=== PATIENT | female | born 1990 | race Caucasian/White ===

== ENCOUNTER 2018-05-25 05:41 | Day surgery (SDC) | payer OTHER ==
[~2018-05-25 05:41] MED LIST: CEFAZOLIN 2 GM/D5W RTU 2 GM/50 ML RTUPB IV ONE; CEFAZOLIN 2 GM/D5W RTU 2 GM/50 ML RTUPB IV PRN
[2018-05-25] MEDS ORDERED: BUPIVACAINE HCL 0.5 % INJ/PF 30 ML SDV ONE (06:55)
[2018-05-25] MEDS ORDERED: LIDOCAINE 1% INJ-PF (10 MG/ML) 30 ML SDV ONE (06:55)
[2018-05-25] MEDS ORDERED: MIDAZOLAM 2 MG/2 ML INJ ONE (07:09)
[2018-05-25] MEDS ORDERED: FENTANYL CITRATE INJ/PF 100 MCG/2 ML AMPUL ONE (07:09)
[2018-05-25] MEDS ORDERED: ONDANSETRON HCL INJ/PF 4 MG/2 ML SDV ONE (07:09)
[2018-05-25] MEDS ORDERED: PROPOFOL INJ 200 MG/20 ML VIAL IV ONE (07:09)
[2018-05-25] MEDS ORDERED: FAMOTIDINE INJ/PF 20 MG/2 ML SDV IV ONE (07:11)
[2018-05-25] MEDS ORDERED: SCOPOLAMINE HYDROBROMIDE 1.5 MG PATCH.TD72 ONE (07:11)
[2018-05-25] MEDS ORDERED: PROMETHAZINE HCL INJ 25 MG/1 ML VIAL IV PRN ×2 (07:58)
[2018-05-25] MEDS ORDERED: OXYCODONE-ACETAMINOPHEN 5-325 MG TABLET PO PRN ×4 (07:58→09:01)
[2018-05-25] MEDS ORDERED: MORPHINE SULFATE 10 MG/ML INJ IV PRN (07:58)
[2018-05-25] MEDS ORDERED: MEPERIDINE HCL/PF INJ 25 MG/1 ML DISP.SYRIN IV PRN (07:58)
[2018-05-25] MEDS ORDERED: FENTANYL CITRATE INJ/PF 100 MCG/2 ML AMPUL IV PRN ×3 (07:58)
[2018-05-25] MEDS ORDERED: DIPHENHYDRAMINE HCL 50 MG/ML VIAL IV PRN (07:58)
[2018-05-25] MEDS ORDERED: ONDANSETRON HCL INJ/PF 4 MG/2 ML SDV IV PRN (08:46)
[2018-05-25] MEDS ORDERED: ONDANSETRON HCL INJ/PF 4 MG/2 ML SDV IV ONE (09:15)
[2018-05-25 10:01] VITALS: BP 112/76
--- NOTE | 2018-05-25 14:39 | OPERATIVE REPORT E ---
Operative Report NAME: RASHMI ALEJANDRA : 1990 AGE: 27Y DATE OF SURGERY: 05/25/2018 ROOM: PREOPERATIVE DIAGNOSIS: Right small finger soft tissue mass. POSTOPERATIVE DIAGNOSIS: Right small finger soft tissue mass. PROCEDURE: Right small finger soft tissue mass. SURGEON: SATISH EUGENE M.D. ANESTHESIA: MAC with local sedation. BLOOD LOSS: Minimal. COMPLICATIONS: None. INDICATIONS: The patient is a pleasant 27-year-old woman with a large soft tissue mass on the ulnar aspect of proximal phalanx right small finger. 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 DESCRIPTION OF PROCEDURE: Following induction of MAC anesthesia, surgeon injected a digital block with a mixture of 0.25% Marcaine and 1% lidocaine after sterile preparation of the extremities. Right upper extremity was prepped with Chloraprep and draped in continuous fashion. The arm was exsanguinated and tourniquet inflated to 100 mm of systolic pressure. A midlateral incision was made on the ulnar aspect of the proximal phalanx of the digit. Sharp and blunt dissection was performed through the subcutaneous tissue. Care was taken to identify and protect the digital artery and the nerve. The mass was dissected down with a combination of a 15 blade and tenotomy scissor and removed from the fascial attachments, which was sent to pathology. The wound was then copiously irrigated and skin reapproximated with 4-0 nylon suture. A bulky sterile dressing was then applied and patient tolerated the procedure well without complications and was brought to the recovery room in stable condition. DICTATING PHYSICIAN: SATISH EUGENE M.D. [id number] PHY#: [id number] ID: [id number] JOB#: [id number] ACCT: [id number] cc:SATISH EUGENE M.D. > MTDD
== END 2018-05-25 09:55 | disposition home or self-care (01) ==
LOC: OROUT 05:41
PROVIDERS: ATTEND Orthopaedic Surgery
DX: D21.11 Benign neoplasm of connective and other soft tissue of right upper limb, including shoulder (principal)
CPT/HCPCS: 81025; 88305 ×2; 26115; J2250; J3490 ×2; J3010; J2405; J2704; S0028; J0690; 400